=== PATIENT | male | born 1945 | race Caucasian/White ===

== ENCOUNTER 2024-11-23 14:23 | Inpatient (IN) | payer MEDICARE, BC ==
[~2024-11-23] VITALS: Ht 167.6 cm; Wt 70.3 kg
[2024-11-23 14:28] VITALS: BP 135/82; TEMP 98.2
[2024-11-23 15:13] VITALS: BP 135/82; TEMP 98.2
[2024-11-23 22:55] VITALS: BP 145/72; TEMP 97.2; O2SAT 98
[2024-11-24] MEDS ORDERED: POLY17PO4 PO (01:03)
[2024-11-24] MEDS ORDERED: ASPI-495 PO (01:03)
[2024-11-24] MEDS ORDERED: AMLO5TAB4 PO (01:03)
[2024-11-24] MEDS ORDERED: CLOP75TA15 PO (01:03)
[2024-11-24] MEDS ORDERED: OLAN2.5T27 PO (01:03)
[2024-11-24] MEDS ORDERED: ACET650T10 PO (01:03)
[2024-11-24] MEDS ORDERED: ATOR80TA PO (01:03)
[2024-11-24] MEDS ORDERED: HEPA100D33 SQ (01:03)
[2024-11-24] MEDS ORDERED: DONE10TA11 PO (01:03)
[2024-11-24] MEDS ORDERED: MIRALAX 17 GM POWD.PACK PO PRN ×2 (02:00→17:05)
[2024-11-24] MEDS ORDERED: ACETAMINOPHEN 325 MG TABLET PO PRN (02:15)
[2024-11-24 08:00] VITALS: BP 131/86; TEMP 97.8; O2SAT 99
[2024-11-24] MEDS: ATORVASTATIN 40 MG TABLET PO SCH (09:09)
[2024-11-24] MEDS: DONEPEZIL 10 MG TABLET PO SCH (09:10)
[2024-11-24] MEDS: ASPIRIN EC 81 MG TABLET.DR PO SCH (09:10)
[2024-11-24] MEDS: CLOPIDOGREL 75 MG TABLET PO SCH (09:10)
[2024-11-24] MEDS: AMLODIPINE 5 MG TABLET PO SCH (09:12)
[2024-11-24] MEDS ORDERED: ASPI-1169 PO (10:59)
[2024-11-24] MEDS ORDERED: MAGN400O6 PO (11:02)
[2024-11-24] MEDS ORDERED: MAGNESIUM HYDROXIDE 30 ML LIQUID UDC PO PRN (13:15)
[2024-11-24] MEDS ORDERED: ALPRAZOLAM 0.25 MG TABLET PO ONE (14:45)
[2024-11-24 16:00] VITALS: BP 145/71; TEMP 97.9; O2SAT 98
[2024-11-24] MEDS: ALPRAZOLAM 0.25 MG TABLET PO ONE (17:51)
[2024-11-24 20:00] VITALS: BP 122/55; TEMP 97.8; O2SAT 98
[2024-11-24] MEDS: OLANZAPINE 2.5 MG TABLET PO SCH (21:21)
[2024-11-25 07:06] VITALS: BP 115/61; TEMP 97.7; O2SAT 95
[2024-11-25 07:25] LABS: BASOPHILS % (AUTO) 0.5 % (0.0-2.0); EOSINOPHILS # (AUTO) 0.2 K/uL (0.0-0.7); EOSINOPHILS % (AUTO) 3.9 % (0.0-7.0); HEMATOCRIT 36.7 % (36.7-47.1); HEMOGLOBIN 12.3 g/dL (12.5-16.3); LYMPHOCYTES # (AUTO) 1.5 K/uL (0.8-4.8); MEAN CORPUSCULAR HEMOGLOBIN 29.9 uug (23.8-33.4); MEAN CORPUSCULAR HGB CONC 34 g/dL (32.5-36.3); MEAN CORPUSCULAR VOLUME 89.1 fL (73.0-96.2); MONOCYTES # (AUTO) 0.4 K/uL (0.1-1.30); MONOCYTES % (AUTO) 8.7 % (0.0-11.0); NEUTROPHILS # (AUTO) 2.8 K/uL (1.8-8.9); NEUTROPHILS % (AUTO) 56.9 % (38.5-71.5); PLATELET COUNT (AUTO) 156 K/uL (152-348); RED BLOOD CELL COUNT(AUTO) 4.12 MIL/uL (4.06-5.63); RED CELL DISTRIBUTION WIDTH 13.2 % (12.1-16.2); WHITE BLOOD COUNT (AUTO) 4.8 K/uL (3.6-10.2)
[2024-11-25 07:28] LABS: DIFFERENTIAL COMMENT 1
[2024-11-25 07:36] LABS: CALCIUM 8.1 mg/dL (8.5-10.1); CARBON DIOXIDE 30 mmol/L (21-32); CHLORIDE 106 mmol/L (98-107); GLUCOSE 88 mg/dL (74-106); MAGNESIUM 1.8 mg/dL (1.8-2.4); PHOSPHOROUS 2.8 mg/dL (2.5-4.9); POTASSIUM 3.7 mmol/L (3.5-5.1); SODIUM SERUM 140 mmol/L (136-145); UREA NITROGEN, BLOOD 19 mg/dL (7-18)
[2024-11-25 08:37] VITALS: BP 117/72; TEMP 97.4; O2SAT 96
[2024-11-25] MEDS: DONEPEZIL 5 MG TABLET PO SCH (09:24)
[2024-11-25] MEDS: ASPIRIN 81 MG TAB.CHEW PO SCH (09:24)
[2024-11-25 15:49] VITALS: BP 144/63; TEMP 97.9; O2SAT 99
[2024-11-25 20:00] VITALS: BP 124/61; TEMP 98.4; O2SAT 97
[2024-11-26 05:00] VITALS: BP 135/65; TEMP 98; O2SAT 96
[2024-11-26 08:00] VITALS: BP 142/67; TEMP 97.9; O2SAT 96
[2024-11-26] MEDS: ACETAMINOPHEN 325 MG TABLET PO PRN (08:55)
[2024-11-26 16:22] VITALS: TEMP 97.7
[2024-11-26 16:26] VITALS: BP 127/73; TEMP 97.7; O2SAT 98
[2024-11-27 07:45] VITALS: BP 104/64; TEMP 97.7; O2SAT 97
[2024-11-27 17:00] VITALS: BP 137/79
[2024-11-27 20:00] VITALS: BP 126/65; TEMP 97.6
[2024-11-28 06:50] VITALS: BP 135/75; TEMP 98.2; O2SAT 97
[2024-11-28 09:43] VITALS: BP 139/72; TEMP 98.2; O2SAT 99
[2024-11-28 20:12] VITALS: BP 128/81; TEMP 98.3; O2SAT 99
[2024-11-29 06:23] VITALS: BP 145/76; TEMP 98.3; O2SAT 94
[2024-11-29 07:51] VITALS: BP 118/87; TEMP 98.1; O2SAT 98
[2024-11-29 16:50] VITALS: BP 121/69; TEMP 98.1; O2SAT 97
[2024-11-29 19:20] VITALS: BP 116/72; TEMP 98; O2SAT 98
[2024-11-30 06:11] VITALS: BP 133/72; TEMP 98.2; O2SAT 98
[2024-11-30 07:04] VITALS: BP 126/73; TEMP 97.7; O2SAT 98
[2024-11-30 16:26] VITALS: BP 135/69; TEMP 98.6; O2SAT 97
[2024-11-30 19:45] VITALS: BP 123/61; TEMP 97.8; O2SAT 99
[2024-12-01 06:23] VITALS: BP 124/64; TEMP 97.8; O2SAT 98
[2024-12-01 08:00] VITALS: BP 119/92; TEMP 97.8; O2SAT 99
[2024-12-01 08:17] VITALS: BP 119/92
== END 2024-12-01 14:00 | disposition home health service (06) | DRG 57 ==
LOC: TELE1 20:28
PROVIDERS: ADMIT Physical Medicine & Rehabilitation Pain Medicine; ATTEND Physical Medicine & Rehabilitation Pain Medicine
DX: I69.320 Aphasia following cerebral infarction (principal); G93.49 Other encephalopathy; N17.9 Acute kidney failure, unspecified; I65.22 Occlusion and stenosis of left carotid artery; I69.398 Other sequelae of cerebral infarction; D64.9 Anemia, unspecified; E78.5 Hyperlipidemia, unspecified; E86.0 Dehydration; I25.10 Atherosclerotic heart disease of native coronary artery without angina pectoris; I10 Essential (primary) hypertension; Z95.5 Presence of coronary angioplasty implant and graft; Z79.02 Long term (current) use of antithrombotics/antiplatelets; I73.9 Peripheral vascular disease, unspecified; G30.9 Alzheimer's disease, unspecified; F02.80 Dementia in other diseases classified elsewhere, unspecified severity, without behavioral disturbance, psychotic disturbance, mood disturbance, and anxiety; R79.89 Other specified abnormal findings of blood chemistry
CPT/HCPCS: 36415; 83735; 84100; 85025; A4663